=== PATIENT | female | born 1935 | race Caucasian/White ===

== ENCOUNTER 2016-10-23 05:23 | Observation (INO) | payer MEDICARE, OTHER ==
[2016-10-23] VITALS (7 sets, daily range): BP systolic 121–148; BP diastolic 71–94; PULSE 70–94; RESP 18–20; TEMP 97.3–97.8; O2SAT 93–98
[~2016-10-23 05:23] MED LIST: CARD2TAB; ECOT81TA2; HYDR-2768; IRBE1TAB39; LIPI80TA16; NIAC500; NIFE1TAB85
[2016-10-23] MEDS ORDERED: LEVO25TA4 PO (06:06)
[2016-10-23] MEDS ORDERED: ESOM1CAP6 PO (06:06)
[2016-10-23] MEDS ORDERED: ATOR1TAB18 PO (06:06)
[2016-10-23] MEDS ORDERED: UMEC1AER INH (06:06)
[2016-10-23] MEDS ORDERED: OXYC1TAB36 PO (06:06)
[2016-10-23] MEDS ORDERED: GABA300C5 PO (06:06)
[2016-10-23] MEDS ORDERED: LOSA100T2 PO (06:06)
[2016-10-23] MEDS ORDERED: DIAZ5 PO (06:06)
[2016-10-23] MEDS ORDERED: MECL-62 PO (06:06)
[2016-10-23] MEDS ORDERED: ASPI81TA11 PO (06:06)
[2016-10-23] MEDS ORDERED: MORPHINE SULFATE 8 MG/ML INJ IV PUSH ONE ×2 (06:15→06:45)
[2016-10-23] MEDS ORDERED: SODIUM CHLORID 0.9% 500 ML INJ 500 ML IV ONE (06:15)
[2016-10-23] MEDS ORDERED: LORazepam 2 MG/ML VIAL IV PUSH ONE (06:15)
[2016-10-23 06:16] LABS: AUTOMATED NEUTROPHIL # 2.7 TH/MM3 (1.8-7.7); BASOPHIL % 0.5 % (0.0-2.0); EOSINOPHIL # 0.4 TH/MM3 (0-0.4); EOSINOPHIL % 5.7 % (0.0-4.0); HEMATOCRIT 43.8 % (35.0-46.0); HEMO FLAGS DIFF FINAL; LYMPH % 45.6 % (9.0-44.0); LYMPHOCYTE # 3.3 TH/MM3 (1.0-4.8); MEAN CELL VOLUME 86.3 FL (80.0-100.0); MEAN CORPUSCULAR HEMOGLOBIN 29.1 PG (27.0-34.0); MEAN CORPUSCULAR HGB CONC 33.7 % (32.0-36.0); MONO % 10.7 % (0.0-8.0); NEUT % 37.5 % (16.0-70.0); PLATELET COUNT 219 TH/MM3 (150-450); RED BLOOD COUNT 5.08 MIL/MM3 (4.00-5.30); RED CELL DISTRIBUTION WIDTH 14.8 % (11.6-17.2); WHITE BLOOD COUNT 7.3 TH/MM3 (4.0-11.0)
--- NOTE | 2016-10-23 06:23 | PD ---
HPI Chief Complaint: Pain: Acute or Chronic Time Seen by Provider: 06:01 Travel History International Travel<30 days: No Contact w/Intl Traveler<30days: No Traveled to known affect area: No History of Present Illness HPI Dizziness 81-year-old woman who presents to the emergency department complaining of right leg pain accompanied by her "service dog". She's been having right leg pain ongoing since September 28. She's had extensive workup including x-ray CT and MRI of her back for possible radiculopathy. Initially thought she had sciatica but then she developed blistering rash in a dermatomal pattern on her leg and was diagnosed with zoster. She doesn't want to apparently her primary doctor and shank rander before they did not think she had zoster. They did some sort of biopsy or swab of the rash. She's been on oxycodone 10 mg at home but is still been in severe pain. has been giving her the oxycodone. He was also prescribed Valium as patient is somewhat hysterical. He was afraid he is the Valium and the Neurontin and the oxycodone that he was prescribed because patient has "reduced lung function". History Past Medical History Narrative Medical History of C. difficile Hypertension Hyperlipidemia Anxiety History of "gelastic seizures" Influenza Vaccination: Yes Menopausal: Yes Para: 7 Social History Alcohol Use: Yes (ONE DRINK EVERY 4 MONTHS) Tobacco Use: No (never) Allergies-Medications (Allergen,Severity, Reaction): Coded Allergies: HMG-CoA Reductase Inhibitors (Verified Allergy, Severe, 10/23/16) Neosporin (Verified Allergy, Severe, Rash, 10/23/16) Omeprazole (Verified Allergy, Severe, 10/23/16) Darvon (Verified Allergy, Mild, 11/18/06) Iodine (Verified Allergy, Mild, 11/18/06) Penicillin (Verified Allergy, Mild, 11/18/06) Reported Meds & Prescriptions Reported Meds & Active Scripts Active Reported Nexium 24 HR (Esomeprazole DR) 20 Mg Capdr 20 Mg PO DAILY Meclizine (Meclizine HCl) 25 Mg Tab 25 Mg PO DIRECTED PRN Anoro Ellipta Inh (Umeclidinium/Vilanterol) 62.5-25 Mcg/Act Aero 1 Puff INH DAILY Losartan-Hydrochlorothiazide 100-25 Mg Tab 1 Tab PO DAILY Levothyroxine (Levothyroxine Sodium) 25 Mcg Tab 25 Mcg PO DAILY Oxycodone-Acetaminophen 10-325 mg Tab 1 Tab PO Q6H PRN Atorvastatin (Atorvastatin Calcium) 80 Mg Tab 80 Mg PO HS Aspirin EC (Aspirin) 81 Mg Tabdr 81 Mg PO DAILY Valium (Diazepam) 5 Mg Tab 5 Mg PO BID PRN Gabapentin 300 Mg Cap 300 Mg PO BID Review of Systems Except as stated in HPI: all other systems reviewed are Neg Physical Exam Narrative GENERAL: 81-year-old woman, tearful and crying. SKIN: Focused skin assessment warm/dry. NECK: Trachea midline. No JVD. CARDIOVASCULAR: Regular rate and rhythm. No murmur appreciated. RESPIRATORY: No accessory muscle use. Clear to auscultation. Breath sounds equal bilaterally. GASTROINTESTINAL: Abdomen soft, non-tender, nondistended. Hepatic and splenic margins not palpable. MUSCULOSKELETAL: No obvious deformities. No edema. Good pulses in both legs. She has some scabbed rash on the posterior thigh and the lateral vasques. Is no obvious blisters at this point. NEUROLOGICAL: Awake and alert. No obvious cranial nerve deficits. Motor grossly within normal limits. Normal speech. PSYCHIATRIC: Appropriate mood and affect; insight and judgment normal. Data Data Last Documented VS Vital Signs Date Time Temp Pulse Resp B/P Pulse Ox O2 Delivery O2 Flow Rate FiO2 10/23/16 05:31 97.6 94 20 143/94 98 Orders Complete Blood Count With Diff (10/23/16 06:01) Comprehensive Metabolic Panel (10/23/16 06:01) Westergren Sedimentation Rate (10/23/16 06:01) C-Reactive Protein (Crp) (10/23/16 06:01) Creatine Kinase (Cpk) (10/23/16 06:01) Iv Access Insert/Monitor (10/23/16 06:01) Lorazepam Inj (Ativan Inj) (10/23/16 06:15) Sodium Chlorid 0.9% 500 Ml Inj (Ns 500 M (10/23/16 06:15) Morphine Inj (Morphine Inj) (10/23/16 06:15) Morphine Inj (Morphine Inj) (10/23/16 06:45) Admit Order (Ed Use Only) (10/23/16 ) Place In Observation (10/23/16 ) Vital Signs (Adult) Q4H (10/23/16 06:43) Activity Oob With Assistance (10/23/16 06:43) Car Sweeper / Telemetry .CONTINUOUS (10/23/16 06:43) Diet Heart Healthy (10/23/16 Breakfast) Sodium Chloride 0.9% Flush (Ns Flush) (10/23/16 06:45) Sodium Chloride 0.9% Flush (Ns Flush) (10/23/16 09:00) Basic Metabolic Panel (Bmp) (10/24/16 06:00) Complete Blood Count With Diff (10/24/16 06:00) Pt Request For Service (10/23/16 06:43) Case Management Consult (10/23/16 06:43) Naloxone Inj (Narcan Inj) (10/23/16 06:45) Labs Laboratory Tests Test 10/23/16 06:00 White Blood Count 7.3 TH/MM3 Red Blood Count 5.08 MIL/MM3 Hemoglobin 14.8 GM/DL Hematocrit 43.8 % Mean Corpuscular Volume 86.3 FL Mean Corpuscular Hemoglobin 29.1 PG Mean Corpuscular Hemoglobin 33.7 % Concent Red Cell Distribution Width 14.8 % Platelet Count 219 TH/MM3 Mean Platelet Volume 7.6 FL Neutrophils (%) (Auto) 37.5 % Lymphocytes (%) (Auto) 45.6 % Monocytes (%) (Auto) 10.7 % Eosinophils (%) (Auto) 5.7 % Basophils (%) (Auto) 0.5 % Neutrophils # (Auto) 2.7 TH/MM3 Lymphocytes # (Auto) 3.3 TH/MM3 Monocytes # (Auto) 0.8 TH/MM3 Eosinophils # (Auto) 0.4 TH/MM3 Basophils # (Auto) 0.0 TH/MM3 CBC Comment DIFF FINAL Differential Comment Erythrocyte Sedimentation Rate 17 mm/hr Sodium Level 140 MEQ/L Potassium Level 3.2 MEQ/L Chloride Level 101 MEQ/L Carbon Dioxide Level 31.4 MEQ/L Anion Gap 8 MEQ/L Blood Urea Nitrogen 21 MG/DL Creatinine 1.03 MG/DL Estimat Glomerular Filtration 51 ML/MIN Rate Random Glucose 104 MG/DL Calcium Level 9.7 MG/DL Total Bilirubin 0.5 MG/DL Aspartate Amino Transf 19 U/L (AST/SGOT) Alanine Aminotransferase 23 U/L (ALT/SGPT) Alkaline Phosphatase 55 U/L Total Creatine Kinase 43 U/L C-Reactive Protein LESS THAN 0.29 MG/DL Total Protein 6.8 GM/DL Albumin 3.4 GM/DL [facility] Medical Decision Making Medical Screen Exam Complete: Yes Emergency Medical Condition: Yes Interpretation(s) LABS: CBC is unremarkable. Sedimentation rate is normal CMP is unremarkable, mildly elevated BUN and creatinine. CRP is normal Differential Diagnosis Shingles, intractable pain, radiculopathy, other Narrative Course Medical decision making This 81-year-old woman who presents with worsening right leg pain. seems to be at his wits end. Patient's hysterically crying. The etiology seems to be shingles. I'm not sure why the dermatologists in the family medicine doctor and reason to doubt that. She already has had MRIs and CTs of her back that would suggest radiculopathy is not the cause. Other etiologies seem unlikely. There is no evidence of peripheral arterial disease. Is no evidence of DVT. The be difficult to otherwise explain this rash. Possibly a dermatitis or vasculitis but I wouldn't expect that to be as painful. I think at this point the best course of action would be to keep the patient for intractable leg pain, likely due to shingles. We'll do 23 hour observation. I think we can give her a dose of IV pain medication now and try to rapidly switched to by mouth. Once patient's comfortable and by mouth medications the can be reassured that these medications to be administered safely at home. We'll attempt to get her previous workup, we'll check some screening labs. Diagnosis Primary Impression: Zoster Additional Impression: Intractable pain Admitting Information Admitting Physician Requests: Observation Derek Shannon MD Oct 23, 2016 06:23
[2016-10-23 06:42] LABS: ALT (GPT) 23 U/L (10-53); ANION GAP 8 MEQ/L (5-15); AST (GOT) 19 U/L (15-37); BICARBONATE 31.4 MEQ/L (21.0-32.0); BLOOD UREA NITROGEN 21 MG/DL (7-18); CHLORIDE 101 MEQ/L (98-107); GLOMERULAR FILTRATION RATE 51 ML/MIN (>89); POTASSIUM 3.2 MEQ/L (3.5-5.1); SODIUM (NA) 140 MEQ/L (136-145)
[2016-10-23 06:45] LABS: ALKALINE PHOSPHATASE 55 U/L (45-117); CREATINE KINASE 43 U/L (26-192); TOTAL BILIRUBIN ADULT 0.5 MG/DL (0.2-1.0)
[2016-10-23] MEDS ORDERED: NALOXONE HCL 0.4 MG/ML AMP IV PRN (06:45)
[2016-10-23] MEDS ORDERED: SODIUM CHLORIDE 0.9% FLUSH 10 ML FLUSH IV FLUSH PRN (06:45)
[2016-10-23] MEDS ORDERED: DIAZEPAM 5 MG TAB PO PRN (07:00)
[2016-10-23] MEDS ORDERED: LEVOTHYROXINE SODIUM 25 MCG TAB PO SCH (09:00)
[2016-10-23] MEDS ORDERED: GABAPENTIN 300 MG CAP PO SCH (09:00)
[2016-10-23] MEDS ORDERED: POTASSIUM CHLORIDE 20 MEQ CONTROLLED RELEASE TAB PO ONE (09:00)
[2016-10-23] MEDS: ASPIRIN EC 81 MG TABEC PO SCH (09:24)
[2016-10-23] MEDS: SODIUM CHLORIDE 0.9% FLUSH 10 ML FLUSH IV FLUSH SCH ×2 (09:24→21:55)
[2016-10-23] MEDS: PANTOPRAZOLE SOD 20 MG DELAYED RELEASE TAB PO SCH (09:26)
[2016-10-23] MEDS: HYDROCHLOROTHIAZIDE 25 MG TAB PO SCH (09:26)
[2016-10-23] MEDS: LOSARTAN 50 MG TAB PO SCH (10:21)
[2016-10-23] MEDS: MORPHINE SULFATE 15 MG TAB PO PRN ×2 (12:11→17:31)
[2016-10-23] MEDS ORDERED: POLYETHYLENE GLYCOL 17 GM PKG PO ONE (16:00)
[2016-10-23] MEDS ORDERED: LIDOCAINE HCL 5% OINT 37 GM TUBE TOPICAL PRN (16:00)
--- NOTE | 2016-10-23 16:04 | HHI.HP ---
[facility] Service [place] Primary Care Physician Unknown Admission Diagnosis zoster, intractable pain Diagnoses: Chief Complaint: Intractable pain Travel History International Travel<30 Days: No Contact w/Intl Traveler <30 Da: No Traveled to Known Affected Are: No History of Present Illness 81-year-old female with a past medical history of HTN, COPD, HLD, GERD, hypothyroidism, seizures who presented for right lower extremity pain. The patient is oriented 3, but is not the best historian, her at bedside helps assist with history. The patient has been having pain of her right leg since September 28. She has a history of sciatica and thought the pain was originally due to that. She went to the emergency room at [facility] and had back x-rays done which were reportedly normal. The patient continued to have right leg pain and 3 days later she noted red spots on her right leg. She went back to the ED, and was diagnosed with shingles. She does state that the pain radiates to her back. She reportedly had lower back CAT scans and MRIs done which were reportedly normal. The patient works that because she was prescribed numerous medications for pain rather than treating any underlying cause. She does state that she was on medication for shingles. She is also been prescribed oxycodone, Valium, and gabapentin for pain and anxiety. They followed up with the patient's PCP, but didn't feel like they were doing anything, so they went to a general merchandise salesperson. The general merchandise salesperson performed a biopsy of one of the leg lesions last Saturday. They stated the patient's PCP and general merchandise salesperson did not think that it was shingles. Report that the red lesions have improved since they started. The patient locates the pain to her inner right thigh and calf. Patient describes the pain as burning. The pain is exacerbated by light touch, moving her right leg, and weightbearing. They do report that topical lidocaine helped the pain a little bit. The patient denies any fevers or chills. She reports decreased appetite, but no nausea or vomiting. Reports constipation, on Colace. Review of Systems Except as stated in HPI: all other systems reviewed are Neg Past Family Social History Past Medical History Hypertension Hyperlipidemia COPD GERD Hyperthyroidism History of C. difficile Past Surgical History Tonsils and adenoids removed Reported Medications Nexium 24 HR (Esomeprazole DR) 20 Mg Capdr 20 Mg PO DAILY Anoro Ellipta Inh (Umeclidinium/Vilanterol) 62.5-25 Mcg/Act Aero 1 Puff INH DAILY Losartan-Hydrochlorothiazide 100-25 Mg Tab 1 Tab PO DAILY Levothyroxine (Levothyroxine Sodium) 25 Mcg Tab 25 Mcg PO DAILY Oxycodone-Acetaminophen 10-325 mg Tab 1 Tab PO Q6H PRN Atorvastatin (Atorvastatin Calcium) 80 Mg Tab 80 Mg PO HS Aspirin EC (Aspirin) 81 Mg Tabdr 81 Mg PO DAILY Valium (Diazepam) 5 Mg Tab 5 Mg PO BID PRN Gabapentin 300 Mg Cap 300 Mg PO BID Allergies: Coded Allergies: HMG-CoA Reductase Inhibitors (Verified Allergy, Severe, 10/23/16) Neosporin (Verified Allergy, Severe, Rash, 10/23/16) Omeprazole (Verified Allergy, Severe, 10/23/16) Darvon (Verified Allergy, Mild, 11/18/06) Iodine (Verified Allergy, Mild, 11/18/06) Penicillin (Verified Allergy, Mild, 11/18/06) Active Ordered Medications Current Medications Medications (Trade) Dose Ordered Sig/Juju Route Start Time Stop Time Status Last Admin (NS Flush) 2 ml UNSCH PRN IV FLUSH 10/23/16 06:45 (NS Flush) 2 ml BID IV FLUSH 10/23/16 09:00 10/23/16 09:24 (Narcan Inj) 0.4 mg UNSCH PRN IV 10/23/16 06:45 (Msir) 15 mg Q4H PRN PO 10/23/16 07:00 10/23/16 12:11 (Ecotrin Ec) 81 mg DAILY PO 10/23/16 09:00 10/23/16 09:24 (Lipitor) 80 mg HS PO 10/23/16 21:00 (Valium) 5 mg BID PRN PO 10/23/16 07:00 (Neurontin) 300 mg BID PO 10/23/16 09:00 10/23/16 09:24 (Protonix) 20 mg DAILY PO 10/23/16 09:00 10/23/16 09:26 (Cozaar) 100 mg DAILY PO 10/23/16 09:00 10/23/16 10:21 (Hydrodiuril) 25 mg DAILY PO 10/23/16 09:00 10/23/16 09:26 (Synthroid) 12.5 mcg DAILY@06 PO 10/24/16 06:00 UNV Family History Father and sister had lung cancer, were smokers Mother had leukemia Social History Rare alcohol use Denies any tobacco or drug use Physical Exam Vital Signs Vital Signs Date Time Temp Pulse Resp B/P Pulse Ox O2 Delivery O2 Flow Rate FiO2 10/23/16 13:22 97.3 74 18 139/76 93 10/23/16 11:30 70 18 148/71 98 10/23/16 10:15 70 18 142/78 98 Room Air 10/23/16 07:20 78 18 10/23/16 07:20 78 18 124/71 95 Room Air 10/23/16 05:31 97.6 94 20 143/94 98 Physical Exam GENERAL: Well-developed well-nourished. In no acute distress. Oriented 3. SKIN: Warm and dry. Dry scaly lesions on the anterior right vasques. Single ulceration on the posterior right thigh with no drainage or surrounding erythema. HEENT: Normocephalic. Pupils equal and round. Mucous membranes pink and moist. CARDIOVASCULAR: Regular rate and rhythm. No murmur appreciated. RESPIRATORY: No accessory muscle use. Clear to auscultation. Breath sounds equal bilaterally. GASTROINTESTINAL: Abdomen soft, non-tender, nondistended. Bowel sounds x4. MUSCULOSKELETAL: No obvious deformities. No clubbing or cyanosis. No edema. Positive straight leg raise on the right. Right lower extremity is tender to light palpation. NEUROLOGICAL: Awake and alert. Moves upper and lower extremities spontaneously. Normal speech. Strength 5/5 except limited examination on right lower extremity secondary to pain. PSYCHIATRIC: Appropriate mood and affect; insight and judgment fair. Laboratory Laboratory Tests Test 10/23/16 06:00 White Blood Count 7.3 Red Blood Count 5.08 Hemoglobin 14.8 Hematocrit 43.8 Mean Corpuscular Volume 86.3 Mean Corpuscular Hemoglobin 29.1 Mean Corpuscular Hemoglobin 33.7 Concent Red Cell Distribution Width 14.8 Platelet Count 219 Mean Platelet Volume 7.6 Neutrophils (%) (Auto) 37.5 Lymphocytes (%) (Auto) 45.6 Monocytes (%) (Auto) 10.7 Eosinophils (%) (Auto) 5.7 Basophils (%) (Auto) 0.5 Neutrophils # (Auto) 2.7 Lymphocytes # (Auto) 3.3 Monocytes # (Auto) 0.8 Eosinophils # (Auto) 0.4 Basophils # (Auto) 0.0 CBC Comment DIFF FINAL Differential Comment Erythrocyte Sedimentation Rate 17 Sodium Level 140 Potassium Level 3.2 Chloride Level 101 Carbon Dioxide Level 31.4 Anion Gap 8 Blood Urea Nitrogen 21 Creatinine 1.03 Estimat Glomerular Filtration 51 Rate Random Glucose 104 Calcium Level 9.7 Total Bilirubin 0.5 Aspartate Amino Transf 19 (AST/SGOT) Alanine Aminotransferase 23 (ALT/SGPT) Alkaline Phosphatase 55 Total Creatine Kinase 43 C-Reactive Protein LESS THAN 0.29 Total Protein 6.8 Albumin 3.4 Result Diagram: 10/23/16 0600 10/23/16 0600 Assessment and Plan Assessment and Plan 81-year-old female with a past medical history of HTN, COPD, HLD, GERD, hypothyroidism, seizures who presented for right lower extremity pain Intractable right lower extremity pain: Symptoms do seem consistent with postherpetic neuralgia. The patient has had extensive previous workup that so far has been unrevealing. Biopsy of initial lesions is pending. -Obtain records of previous imaging, cultures, and biopsy of right lower extremity. Further workup may be needed as indicated based on record findings. -Oral morphine for pain control as needed. Bowel regimen. Monitor on telemetry. -Taper to increase gabapentin -Resume lidocaine as needed topically -PT consulted, recommends SNF although the patient and want to go home. Hypokalemia: Probably due to decreased oral intake. Potassium 3.2. Replaced orally. Follow-up BMP. CKD stage III: Creatinine 1.03, previously 1.1 on 11/18/06. Chronic, stable. Monitor. Other chronic medical conditions include HTN, COPD, HLD, GERD, hypothyroidism: Stable at this time and will continue home medications as indicated. DVT prophylaxis: Lovenox Discussed Condition With Patient with and RN at bedside, Ricardo Bar Oct 23, 2016 16:04
[2016-10-23] MEDS: GABAPENTIN 100 MG CAP PO SCH (17:01)
[2016-10-23] MEDS ORDERED: ENOXAPARIN SODIUM 40 MG/0.4 ML SYRINGE SQ SCH (18:00)
[2016-10-23] MEDS ORDERED: ATORVASTATIN 80 MG TAB PO SCH (21:00)
[2016-10-23] MEDS: DOCUSATE SODIUM 50 MG/SENNA 8.6 MG TAB PO SCH (21:55)
[2016-10-24 00:06] VITALS: BP 142/70; PULSE 62; RESP 18; TEMP 97.8; O2SAT 94
[2016-10-24 00:15] VITALS: PULSE 61
[2016-10-24] MEDS: MORPHINE SULFATE 15 MG TAB PO PRN ×3 (00:53→11:32)
[2016-10-24 03:55] LABS: AUTOMATED NEUTROPHIL # 2.9 TH/MM3 (1.8-7.7); BASOPHIL # 0.1 TH/MM3 (0-0.2); BASOPHIL % 0.9 % (0.0-2.0); EOSINOPHIL # 0.4 TH/MM3 (0-0.4); EOSINOPHIL % 5.8 % (0.0-4.0); HEMATOCRIT 39.8 % (35.0-46.0); HEMO FLAGS DIFF FINAL; LYMPH % 38.9 % (9.0-44.0); LYMPHOCYTE # 2.5 TH/MM3 (1.0-4.8); MEAN CELL VOLUME 85.8 FL (80.0-100.0); MEAN CORPUSCULAR HEMOGLOBIN 29.8 PG (27.0-34.0); MEAN CORPUSCULAR HGB CONC 34.8 % (32.0-36.0); MONO % 9.9 % (0.0-8.0); NEUT % 44.5 % (16.0-70.0); PLATELET COUNT 184 TH/MM3 (150-450); RED BLOOD COUNT 4.64 MIL/MM3 (4.00-5.30); RED CELL DISTRIBUTION WIDTH 14.8 % (11.6-17.2); WHITE BLOOD COUNT 6.4 TH/MM3 (4.0-11.0)
[2016-10-24 04:17] LABS: BICARBONATE 30.1 MEQ/L (21.0-32.0); POTASSIUM 3.6 MEQ/L (3.5-5.1)
[2016-10-24 04:52] VITALS: BP 108/67; PULSE 67; RESP 18; TEMP 96; O2SAT 95
[2016-10-24] MEDS ORDERED: LEVOTHYROXINE SODIUM 25 MCG TAB PO SCH ×2 (06:00)
[2016-10-24 07:14] VITALS: BP 133/72; PULSE 73; RESP 18; TEMP 97.6; O2SAT 96
--- NOTE | 2016-10-24 08:21 | HHI.PR ---
Subjective Remarks 81-year-old female with a past medical history of HTN, COPD, HLD, GERD, hypothyroidism, seizures who presented for right lower extremity pain. The patient is oriented 3, but is not the best historian, her at bedside helps assist with history. The patient has been having pain of her right leg since September 28. She has a history of sciatica and thought the pain was originally due to that. She went to the emergency room at [facility] and had back x-rays done which were reportedly normal. The patient continued to have right leg pain and 3 days later she noted red spots on her right leg. She went back to the ED, and was diagnosed with shingles. She does state that the pain radiates to her back. She reportedly had lower back CAT scans and MRIs done which were reportedly normal. The patient works that because she was prescribed numerous medications for pain rather than treating any underlying cause. She does state that she was on medication for shingles. She is also been prescribed oxycodone, Valium, and gabapentin for pain and anxiety. They followed up with the patient's PCP, but didn't feel like they were doing anything, so they went to a vision therapist. The vision therapist performed a biopsy of one of the leg lesions last Saturday. They stated the patient's PCP and vision therapist did not think that it was shingles. Report that the red lesions have improved since they started. The patient locates the pain to her inner right thigh and calf. Patient describes the pain as burning. The pain is exacerbated by light touch, moving her right leg, and weightbearing. They do report that topical lidocaine helped the pain a little bit. The patient denies any fevers or chills. She reports decreased appetite, but no nausea or vomiting. Reports constipation, on Colace. 10/24: Seen stable in her bedroom, in the presence of her Mr. Garret Littlejohn, continue in pain but as per her she is not taking her Gabapentin as indicated and discontinue its use, recommended to continue taking her medications and follow with Primary Care Physician, also explained how the Gabapentin works and needs to take it on scheduled basis. Objective Vital Signs Date Time Temp Pulse Resp B/P Pulse Ox O2 Delivery O2 Flow Rate FiO2 10/24/16 07:14 97.6 73 18 133/72 96 10/24/16 04:52 96.0 67 18 108/67 95 10/24/16 00:15 61 10/24/16 00:06 97.8 62 18 142/70 94 10/23/16 19:53 97.8 75 18 121/71 95 10/23/16 16:43 86 10/23/16 13:22 97.3 74 18 139/76 93 10/23/16 11:30 70 18 148/71 98 10/23/16 10:15 70 18 142/78 98 Room Air I/O 10/23/16 10/23/16 10/23/16 10/24/16 10/24/16 10/24/16 07:00 15:00 23:00 07:00 15:00 23:00 Intake Total 240 ml Output Total 50 ml Balance 190 ml Intake Oral 240 ml Output Urine Total 50 ml Result Diagram: 10/24/16 0326 10/24/16 0326 Imaging No Imaging studies Procedures No procedures. Other Results Laboratory Tests Test 10/23/16 10/24/16 06:00 03:26 Erythrocyte Sedimentation Rate 17 mm/hr Total Bilirubin 0.5 MG/DL Aspartate Amino Transf 19 U/L (AST/SGOT) Alanine Aminotransferase 23 U/L (ALT/SGPT) Alkaline Phosphatase 55 U/L Total Creatine Kinase 43 U/L C-Reactive Protein LESS THAN 0.29 MG/DL Total Protein 6.8 GM/DL Albumin 3.4 GM/DL White Blood Count 6.4 TH/MM3 Red Blood Count 4.64 MIL/MM3 Hemoglobin 13.8 GM/DL Hematocrit 39.8 % Mean Corpuscular Volume 85.8 FL Mean Corpuscular Hemoglobin 29.8 PG Mean Corpuscular Hemoglobin 34.8 % Concent Red Cell Distribution Width 14.8 % Platelet Count 184 TH/MM3 Mean Platelet Volume 8.0 FL Neutrophils (%) (Auto) 44.5 % Lymphocytes (%) (Auto) 38.9 % Monocytes (%) (Auto) 9.9 % Eosinophils (%) (Auto) 5.8 % Basophils (%) (Auto) 0.9 % Neutrophils # (Auto) 2.9 TH/MM3 Lymphocytes # (Auto) 2.5 TH/MM3 Monocytes # (Auto) 0.6 TH/MM3 Eosinophils # (Auto) 0.4 TH/MM3 Basophils # (Auto) 0.1 TH/MM3 CBC Comment DIFF FINAL Differential Comment Sodium Level 140 MEQ/L Potassium Level 3.6 MEQ/L Chloride Level 104 MEQ/L Carbon Dioxide Level 30.1 MEQ/L Anion Gap 6 MEQ/L Blood Urea Nitrogen 17 MG/DL Creatinine 0.79 MG/DL Estimat Glomerular Filtration 70 ML/MIN Rate Random Glucose 100 MG/DL Calcium Level 9.3 MG/DL Objective Remarks GENERAL: Well-developed well-nourished. In no acute distress. Oriented 3. SKIN: Warm and dry. Dry scaly lesions on the anterior right vasques. Single ulceration on the posterior right thigh with no drainage or surrounding erythema. HEENT: Normocephalic. Pupils equal and round. Mucous membranes pink and moist. CARDIOVASCULAR: Regular rate and rhythm. No murmur appreciated. RESPIRATORY: No accessory muscle use. Clear to auscultation. Breath sounds equal bilaterally. GASTROINTESTINAL: Abdomen soft, non-tender, nondistended. Bowel sounds x4. MUSCULOSKELETAL: No obvious deformities. No clubbing or cyanosis. No edema. Positive straight leg raise on the right. Right lower extremity is tender to light palpation. NEUROLOGICAL: Awake and alert. Moves upper and lower extremities spontaneously. Normal speech. Strength 5/5 except limited examination on right lower extremity secondary to pain. PSYCHIATRIC: Appropriate mood and affect; insight and judgment fair. Medications and IVs Current Medications Medications (Trade) Dose Ordered Sig/Juju Route Start Time Stop Time Status Last Admin (NS Flush) 2 ml UNSCH PRN IV FLUSH 10/23/16 06:45 (NS Flush) 2 ml BID IV FLUSH 10/23/16 09:00 10/23/16 21:55 (Narcan Inj) 0.4 mg UNSCH PRN IV 10/23/16 06:45 (Msir) 15 mg Q4H PRN PO 10/23/16 07:00 10/24/16 07:13 (Ecotrin Ec) 81 mg DAILY PO 10/23/16 09:00 10/23/16 09:24 (Lipitor) 80 mg HS PO 10/23/16 21:00 10/23/16 21:54 (Protonix) 20 mg DAILY PO 10/23/16 09:00 10/23/16 09:26 (Cozaar) 100 mg DAILY PO 10/23/16 09:00 10/23/16 10:21 (Hydrodiuril) 25 mg DAILY PO 10/23/16 09:00 10/23/16 09:26 (Neurontin) 200 mg TID PO 10/23/16 18:00 10/23/16 17:01 (Synthroid) 25 mcg DAILY@06 PO 10/24/16 06:00 10/24/16 06:00 (Xylocaine 5% Oint) 1 applic Q8H PRN TOPICAL 10/23/16 16:00 (Laura-Colace) 1 tab BID PO 10/23/16 21:00 10/23/16 21:55 (Lovenox Inj) 40 mg Q24H SQ 10/23/16 18:00 A/P Assessment and Plan 81-year-old female with a past medical history of HTN, COPD, HLD, GERD, hypothyroidism, seizures who presented for right lower extremity pain Intractable right lower extremity pain: Symptoms do seem consistent with postherpetic neuralgia. The patient has had extensive previous workup that so far has been unrevealing. Biopsy of initial lesions is pending. -Obtain records of previous imaging, cultures, and biopsy of right lower extremity. Further workup may be needed as indicated based on record findings. -Oral morphine for pain control as needed. Bowel regimen. Monitor on telemetry. -Taper to increase gabapentin -Resume lidocaine as needed topically -PT consulted, recommends SNF although the patient and want to go home. recommended to continue using her Walker. Hypokalemia: replaced Acute Kidney Injury Improved. Other chronic medical conditions include HTN, COPD, HLD, GERD, hypothyroidism: Stable at this time and will continue home medications as indicated. History of C. difficile DVT prophylaxis: Danette Discussed Condition With Patient and her in the room and all questions answered to the best of my abilities. Deon De Los Santos MD Oct 24, 2016 08:21
[2016-10-24] MEDS ORDERED: UMECLIDINIUM 62.5 MCG/VILANTEROL 25 MCG INHALER INH SCH (09:00)
[2016-10-24] MEDS ORDERED: GABA100C4 PO (09:40)
[2016-10-24] MEDS ORDERED: MSIR15 PO (09:40)
--- NOTE | 2016-10-24 09:42 | HHI.FF ---
Face to Face Verification Diagnosis: (1) Zoster (2) Intractable pain Physical Therapy Order: Evaluate and Treat, Improve ambulation, Strength and gait training Home Health Nursing Order: Medical education Signs/symptoms of disease process Medication education-adverse effect Nursing assessment with vital signs I have seen patient Binta Littlejohn on 10/24/16. My clinical findings support the need for the requested home health care services because: Ltd mobility - disease progression I certify that my clinical findings support that this patient is homebound because: Unsafe to leave home unassisted Deon De Los Santos MD Oct 24, 2016 09:42
--- NOTE | 2016-10-24 09:45 | HHI.DS ---
Discharge Summary Admission Date Oct 23, 2016 at 06:49 Discharge Date: Oct 24, 2016 Admitting Diagnosis zoster, intractable pain (1) Zoster ICD Code: B02.9 Diagnosis: Principal (2) Intractable pain ICD Code: R52 Diagnosis: Principal Procedures None Brief History - From Admission 81-year-old female with a past medical history of HTN, COPD, HLD, GERD, hypothyroidism, seizures who presented for right lower extremity pain. The patient is oriented 3, but is not the best historian, her at bedside helps assist with history. The patient has been having pain of her right leg since September 28. She has a history of sciatica and thought the pain was originally due to that. She went to the emergency room at [facility] and had back x-rays done which were reportedly normal. The patient continued to have right leg pain and 3 days later she noted red spots on her right leg. She went back to the ED, and was diagnosed with shingles. She does state that the pain radiates to her back. She reportedly had lower back CAT scans and MRIs done which were reportedly normal. The patient works that because she was prescribed numerous medications for pain rather than treating any underlying cause. She does state that she was on medication for shingles. She is also been prescribed oxycodone, Valium, and gabapentin for pain and anxiety. They followed up with the patient's PCP, but didn't feel like they were doing anything, so they went to a stoker erector. The stoker erector performed a biopsy of one of the leg lesions last Saturday. They stated the patient's PCP and stoker erector did not think that it was shingles. Report that the red lesions have improved since they started. The patient locates the pain to her inner right thigh and calf. Patient describes the pain as burning. The pain is exacerbated by light touch, moving her right leg, and weightbearing. They do report that topical lidocaine helped the pain a little bit. The patient denies any fevers or chills. She reports decreased appetite, but no nausea or vomiting. Reports constipation, on Colace. CBC/BMP: 10/24/16 0326 10/24/16 0326 Significant Findings Laboratory Tests Test 10/23/16 10/24/16 06:00 03:26 Lymphocytes (%) (Auto) 45.6 % (9.0-44.0) Monocytes (%) (Auto) 10.7 % 9.9 % (0.0-8.0) (0.0-8.0) Eosinophils (%) (Auto) 5.7 % (0.0-4.0) 5.8 % (0.0-4.0) Potassium Level 3.2 MEQ/L (3.5-5.1) Blood Urea Nitrogen 21 MG/DL (7-18) Creatinine 1.03 MG/DL (0.50-1.00) Estimat Glomerular Filtration 51 ML/MIN (>89) 70 ML/MIN (>89) Rate Imaging No Imaging studies. PE at Discharge GENERAL: Well-developed well-nourished. In no acute distress. Oriented 3. SKIN: Warm and dry. Dry scaly lesions on the anterior right vasques. Single ulceration on the posterior right thigh with no drainage or surrounding erythema. HEENT: Normocephalic. Pupils equal and round. Mucous membranes pink and moist. CARDIOVASCULAR: Regular rate and rhythm. No murmur appreciated. RESPIRATORY: No accessory muscle use. Clear to auscultation. Breath sounds equal bilaterally. GASTROINTESTINAL: Abdomen soft, non-tender, nondistended. Bowel sounds x4. MUSCULOSKELETAL: No obvious deformities. No clubbing or cyanosis. No edema. Positive straight leg raise on the right. Right lower extremity is tender to light palpation. NEUROLOGICAL: Awake and alert. Moves upper and lower extremities spontaneously. Normal speech. Strength 5/5 except limited examination on right lower extremity secondary to pain. PSYCHIATRIC: Appropriate mood and affect; insight and judgment fair. Hospital Course 81-year-old female with a past medical history of HTN, COPD, HLD, GERD, hypothyroidism, seizures who presented for right lower extremity pain. The patient is oriented 3, but is not the best historian, her at bedside helps assist with history. The patient has been having pain of her right leg since September 28. She has a history of sciatica and thought the pain was originally due to that. She went to the emergency room at [facility] and had back x-rays done which were reportedly normal. The patient continued to have right leg pain and 3 days later she noted red spots on her right leg. She went back to the ED, and was diagnosed with shingles. She does state that the pain radiates to her back. She reportedly had lower back CAT scans and MRIs done which were reportedly normal. The patient works that because she was prescribed numerous medications for pain rather than treating any underlying cause. She does state that she was on medication for shingles. She is also been prescribed oxycodone, Valium, and gabapentin for pain and anxiety. They followed up with the patient's PCP, but didn't feel like they were doing anything, so they went to a stoker erector. The stoker erector performed a biopsy of one of the leg lesions last Saturday. They stated the patient's PCP and stoker erector did not think that it was shingles. Report that the red lesions have improved since they started. The patient locates the pain to her inner right thigh and calf. Patient describes the pain as burning. The pain is exacerbated by light touch, moving her right leg, and weightbearing. They do report that topical lidocaine helped the pain a little bit. The patient denies any fevers or chills. She reports decreased appetite, but no nausea or vomiting. Reports constipation, on Colace. 10/24: Seen stable in her bedroom, in the presence of her Mr. Garret Littlejohn, continue in pain but as per her she is not taking her Gabapentin as indicated and discontinue its use, recommended to continue taking her medications and follow with Primary Care Physician, also explained how the Gabapentin works and needs to take it on scheduled basis. Assessment and Plan 81-year-old female with a past medical history of HTN, COPD, HLD, GERD, hypothyroidism, seizures who presented for right lower extremity pain Intractable right lower extremity pain: Symptoms do seem consistent with postherpetic neuralgia. The patient has had extensive previous workup that so far has been unrevealing. Biopsy of initial lesions is pending. -Obtain records of previous imaging, cultures, and biopsy of right lower extremity. Further workup may be needed as indicated based on record findings. -Oral morphine for pain control as needed. Bowel regimen. Monitor on telemetry. -Taper to increase gabapentin -Resume lidocaine as needed topically -PT consulted, recommends SNF although the patient and want to go home. recommended to continue using her Walker. Hypokalemia: replaced Acute Kidney Injury Improved. Other chronic medical conditions include HTN, COPD, HLD, GERD, hypothyroidism: Stable at this time and will continue home medications as indicated. History of C. difficile DVT prophylaxis: Lovenox Discussed Condition With Patient and her in the room and all questions answered to the best of my abilities. Discharge to Rehab as recommended by Physical therapy but her states he will refuse this measurement. and wants to go home with [facility] will follow if he refuse this Discharge to Rehabilitation area. Pt Condition on Discharge: Stable Discharge Disposition: Rehab Inpatient Discharge Time: <= 30 minutes Discharge Instructions DIET: Follow Instructions for: Heart Healthy Diet Activities you can perform: See Additionl Instruction Other Activity Instructions: Follow Physical Therapy specialist recommendations in Rehab Deon De Los Santos MD Oct 24, 2016 09:45
[2016-10-24] MEDS: PANTOPRAZOLE SOD 20 MG DELAYED RELEASE TAB PO SCH (10:21)
[2016-10-24] MEDS: HYDROCHLOROTHIAZIDE 25 MG TAB PO SCH (10:21)
[2016-10-24] MEDS: DOCUSATE SODIUM 50 MG/SENNA 8.6 MG TAB PO SCH (10:22)
[2016-10-24] MEDS: GABAPENTIN 100 MG CAP PO SCH (10:22)
[2016-10-24] MEDS: ASPIRIN EC 81 MG TABEC PO SCH (10:22)
[2016-10-24] MEDS: SODIUM CHLORIDE 0.9% FLUSH 10 ML FLUSH IV FLUSH SCH (10:23)
[2016-10-24] MEDS: LOSARTAN 50 MG TAB PO SCH (10:23)
[2016-10-24 12:16] VITALS: BP 96/61; PULSE 68; RESP 14; TEMP 98.3; O2SAT 95
== END 2016-10-24 14:44 | disposition home or self-care (01) ==
LOC: NEPE 05:23 → NEDA 06:49 → NEPGCP 11:50 → NEPFCDU 13:12
PROVIDERS: ADMIT Internal Medicine; ATTEND Internal Medicine
DX: B02.29 Other postherpetic nervous system involvement (principal); M79.604 Pain in right leg; N17.9 Acute kidney failure, unspecified; R42 Dizziness and giddiness; E87.6 Hypokalemia; R63.0 Anorexia; I12.9 Hypertensive chronic kidney disease with stage 1 through stage 4 chronic kidney disease, or unspecified chronic kidney disease; N18.3 Chronic kidney disease, stage 3 (moderate); J44.9 Chronic obstructive pulmonary disease, unspecified; E78.5 Hyperlipidemia, unspecified; E03.9 Hypothyroidism, unspecified; E05.90 Thyrotoxicosis, unspecified without thyrotoxic crisis or storm; R56.9 Unspecified convulsions; K21.9 Gastro-esophageal reflux disease without esophagitis; M54.30 Sciatica, unspecified side; F41.9 Anxiety disorder, unspecified; K59.00 Constipation, unspecified; Z79.899 Other long term (current) drug therapy; Z79.82 Long term (current) use of aspirin
CPT/HCPCS: 80048; 80053; 82550; 85025; 85652; 86140; 96361; 96374; 96375; 97162; 99285; G0378; G8987; G8988; J2060; J2270; J7040